=== PATIENT | female | born 1955 | race Caucasian/White ===

== ENCOUNTER 2019-05-19 10:41 | Emergency (ER) | payer SELFPAY ==
[~2019-05-19] VITALS: Ht 165.1 cm; Wt 68.5 kg
[2019-05-19] MEDS ORDERED: HYDROcodone/APAP 5 MG/325 MG (LORTAB) TAB PO ONE (11:45)
--- NOTE | 2019-05-19 12:30 | ED Upper Extremity ---
General Chief Complaint: Orthopedic Problems Stated Complaint: R WRIST INJ / PAIN Nursing Triage Note: PT AMB TO TRIAGE WITH COMPLAINT OF RIGHT ARM INJURY. STATES A WINDOW DROPPED ON HER ARM WHILE TRYING TO GET INTO HER HOUSE. Nursing Sepsis Screen: No Definite Risk Source: patient Exam Limitations: no limitations History of Present Illness Date Seen by Provider: May 19, 2019 Time Seen by Provider: 11:45 Initial Comments 63 year old female who present to the ed with complaints of right arm/wrist pain after a window dropped and landed on her arm while she was truing to climb in the window of her house. Pain/Injury Location: right wrist Method of Injury: direct blow Modifying Factors: Worse With Movement Allergies and Home Medications Allergies Coded Allergies: codeine (Verified Allergy, Unknown, 05/19/19) Patient Home Medication List Home Medication List Reviewed: Yes Review of Systems Constitutional: see HPI; No chills, No fever Musculoskeletal: see HPI, joint pain (right wrist ) All Other Systems Reviewed Negative Unless Noted: Yes Past Opjbhwo-Gzutfk-Icjbfh Hx Past Med/Social Hx: Reviewed Nursing Past Med/Soc Hx Patient Social History Alcohol Use: Denies Use Recreational Drug Use: No Smoking Status: Current Everyday Smoker Type Used: Cigarettes Recent Foreign Travel: No Contact w/Someone Who Travel: No Recent Infectious Disease Expo: No Recent Hopitalizations: No Immunizations Up To Date Tetanus Booster (TDap): Unknown Seasonal Allergies Seasonal Allergies: No Past Medical History Surgeries: Yes Abdominal, Orthopedic, Pituitary Respiratory: No Cardiac: Yes Hypertension Neurological: No Genitourinary: No Gastrointestinal: No Musculoskeletal: No Endocrine: Yes Pituitary Disease HEENT: No Cancer: No Psychosocial: Yes Bipolar, Depression Integumentary: No Family Medical History Reviewed Nursing Family Hx Physical Exam Vital Signs Vital Signs - First Documented 05/19/19 11:41 Pulse 105 Resp 17 B/P (MAP) 163/82 (109) Pulse Ox 95 O2 Delivery Room Air Capillary Refill : Less Than 3 Seconds Height, Weight, BMI Height: 5'5.00" Weight: 151lbs. oz. 68.928738kt; BMI Method:Stated General Appearance: WD/WN, no apparent distress Cardiovascular: normal peripheral pulses, regular rate, rhythm, no edema, no gallop, no JVD, no murmur Respiratory: chest non-tender, lungs clear, normal breath sounds, no respiratory distress, no accessory muscle use Wrist: Yes pain, Yes soft tissue tenderness Neurologic/Psychiatric: alert, normal mood/affect, oriented x 3 Skin: normal color, warm/dry Progress/Results/Core Measures Results/Orders My Orders Vital Signs/I&O Blood Pressure Mean: 109 Departure Impression Primary Impression: Contusion of wrist, right Disposition: 01 HOME, SELF-CARE Condition: Stable Departure-Patient Inst. Decision time for Depature: 12:29 Referrals: NO,LOCAL PHYSICIAN (PCP/Family) Primary Care Physician Patient Instructions: Contusion (DC) Add. Discharge Instructions: Ice to the sore areas at 20 minute intervals. Tylenol and ibuprofen as directed by the bottle for pain relief. Follow-up with your primary care provider within 1 week for recheck. Return back to the emergency room for worsening symptoms or concerns as needed. All discharge instructions reviewed with patient and/or family. Voiced understanding. ODILON SANTANA May 19, 2019 12:30
--- NOTE | 2019-05-19 12:30 | Diagnostic Imaging Report ---
EXAMINATION: Right wrist, three views. INDICATION: Right wrist trauma with pain. COMPARISON: None available. FINDINGS: There is marked osteopenia of the visualized bones, limiting detailed evaluation. No fracture or acute osseous abnormalities identified. Bony alignment is maintained. Carpal configuration is normal. Soft tissues are unremarkable. No radiopaque foreign body. IMPRESSION: No acute fracture or dislocation. Dictated by: Dictated on workstation # [id number]
[2019-05-19 12:42] VITALS: BP 163/82
== END 2019-05-19 12:42 | disposition home or self-care (01) ==
LOC: EDUNIT# 10:41 → ER 10:43
DX: S60.211A Contusion of right wrist, initial encounter (principal); I10 Essential (primary) hypertension; F31.9 Bipolar disorder, unspecified; F17.210 Nicotine dependence, cigarettes, uncomplicated; Z88.5 Allergy status to narcotic agent; W20.8XXA Other cause of strike by thrown, projected or falling object, initial encounter; Y93.39 Activity, other involving climbing, rappelling and jumping off; Y92.009 Unspecified place in unspecified non-institutional (private) residence as the place of occurrence of the external cause
CPT/HCPCS: 73110